=== PATIENT | female | born 1980 | race Caucasian/White ===

== ENCOUNTER 2016-04-25 12:58 | Outpatient (CLI) ==
[2015-09-03 12:01] VITALS: BMI 50.1
[2016-04-25 13:04] LABS: BASOPHILS % (AUTO) 0.4 % (0.0-3.0); EOSINOPHILS # (AUTO) 0.3 K/ul (0.0-0.7); EOSINOPHILS % (AUTO) 3.3 % (0.0-7.0); HEMATOCRIT 33.4 % (37.0-47.0); IMMATURE GRANULOCYTE % (AUTO) 0.5 % (0.0-5.0); LYMPHOCYTES # (AUTO) 1.9 K/uL (0.60-3.4); LYMPHOCYTES % (AUTO) 24.5 (10.0-50.0); MEAN CORPUSCULAR HEMOGLOBIN 21.7 pg (27.0-31.0); MEAN CORPUSCULAR HGB CONC 29.9 (31.8-35.4); MEAN CORPUSCULAR VOLUME 72.5 fl (81.0-99.0); MONOCYTES # (AUTO) 0.4 K/uL (0.4-2.0); MONOCYTES % (AUTO) 5.1 (0-10); NEUTROPHILS % (AUTO) 66.2; PLATELET COUNT 323 10^3/uL (140-440); RED BLOOD COUNT 4.61 10^6/ul (4.20-5.40); WHITE BLOOD COUNT 7.62 K/ul (4.6-10.2)
[2016-04-25 13:38] LABS: ALBUMIN 3.4 g/dL (3.4-5.0); ALBUMIN/GLOBULIN RATIO 0.85; ANION GAP 13.1; BILIRUBIN,TOTAL 0.41 mg/dL (0.00-1.20); BUN/CREATININE RATIO 12.32; CALCIUM 8.7 mg/dL (8.2-10.2); CHOL/HDL RATIO 4.9 (4.5-5.5); CREATININE 0.73 mg/dL (0.60-1.30); POTASSIUM 4.1 mmol/L (3.5-5.10); TOTAL PROTEIN 7.4 g/dL (6.4-8.2)
== END 2016-04-25 12:59 | disposition home or self-care (01) ==
LOC: LAB 12:58
PROVIDERS: ATTEND Nurse Practitioner Family
DX: I10 Essential (primary) hypertension (principal)
CPT/HCPCS: 36415; 80053; 80061; 84439; 84443; 85025

== ENCOUNTER 2016-05-10 16:08 | Outpatient (CLI) ==
[2015-09-03 12:01] VITALS: BMI 50.1
== END 2016-05-10 16:09 | disposition home or self-care (01) ==
LOC: CAR 16:08
PROVIDERS: ATTEND Nurse Practitioner Family
DX: R53.83 Other fatigue (principal); E66.9 Obesity, unspecified

== ENCOUNTER 2017-02-04 19:33 | Emergency (ER) ==
--- NOTE | 2017-02-04 19:51 | ED.PDOC ---
General ED Provider: Dr. LUIS ELIZABETH-ER Chief Complaint: Earache Stated Complaint: my ear hurts to open my mouth--its going into my forehead and down my neck--lester been taking motrin--it helps but the pain comes back Time Seen by Physician: 19:49 Mode of Arrival: Walk-In Information Source: Patient Exam Limitations: No limitations Primary Care Provider: KATHY VAUGHAN Nursing and Triage Documentation Reviewed and Agree: Yes EENT Complaint Exam - Ear Complaint/Exam Onset/Duration: 2 days Symptoms Are: Still present Timing: Constant Initial Severity: Mild Current Severity: Mild Character: Reports: Dull pain, Aching pain Aggravating: Reports: None Alleviating: Reports: None Associated Signs and Symptoms: Reports: Pain to external ear. Denies: Ear trauma, Ear swelling, Discharge, Fever, Hearing loss, Bleeding, Sore throat, Headache, URI symptoms, Foreign body sensation, Rash, Pain to external face Ear Surgical History: None Vesicles to External Pinna: No Vesicles to Tragus: No TMJ Tenderness: Right Mastoid Tenderness: None Tragal Tenderness: None External Canal: Tenderness Differential Diagnoses: Otitis Externa, TMJ Syndrome, Other Review of Systems - Review Of Systems Constitutional: Reports: No symptoms Eyes: Reports: No symptoms Ears, Nose, Mouth, Throat: Reports: Ear pain, Mouth pain Respiratory: Reports: No symptoms Cardiac: Reports: No symptoms GI: Reports: No symptoms : Reports: No symptoms Musculoskeletal: Reports: No symptoms Skin: Reports: No symptoms Neurological: Reports: No symptoms Endocrine: Reports: No symptoms Hematologic/Lymphatic: Reports: No symptoms All Other Systems: Reviewed and Negative Past Medical History - Past Medical History Previously Healthy: No Endocrine: Reports: None Cardiovascular: Reports: None Respiratory: Reports: Asthma Hematological: Reports: None Gastrointestinal: Reports: None Genitourinary: Reports: None Neuro/Psych: Reports: Other (SPINAL STENOSIS) Musculoskeletal: Reports: None Cancer: Reports: None - Surgical History General Surgical History: Reports: None - Family History Family History: Reports: Unknown - Social History Smoking Status: Never smoker Hx Substance Use: No Alcohol Screening: None Lives: With family Physical Exam - Physical Exam Appearance: Well-appearing, No pain distress, Well-nourished Pain Distress: Mild Eyes: BRENDA, EOMI, Conjunctiva clear ENT: Ears normal, Nose normal Neck: Supple Respiratory: Airway patent, Breath sounds clear, Breath sounds equal, Respirations nonlabored Cardiovascular: RRR, Pulses normal, No rub, No murmur GI/: Soft, Nontender, No masses, Bowel sounds normal, No Organomegaly Musculoskeletal: Normal strength, ROM intact, No edema, No calf tenderness Skin: Warm, Dry, Normal color Neurological: Sensation intact, Motor intact, Reflexes intact, Cranial nerves intact, Alert, Oriented Psychiatric: Affect appropriate, Mood appropriate Critical Care Note - Critical Care Note Total Time (mins): 0 Departure - Departure Time of Disposition: 19:51 Disposition: HOME SELF-CARE Discharge Problem: Dental caries, TMJ (temporomandibular joint disorder) Instructions: Temporomandibular Disorder (ED) Condition: Good Pt referred to PMD for follow-up: Yes Additional Instructions: toradol 10mg qid prn pain #16--flexeril 5mg tid prn #21--clindamycin 150mg tid x 7 days #21--f/u dentist Allergies/Adverse Reactions: Allergies aspirin Adverse Reaction (Verified 09/03/15 12:35) Iodinated Contrast- Oral and IV Dye Adverse Reaction (Verified 09/03/15 12:35) Penicillins Adverse Reaction (Verified 09/03/15 12:35) shellfish derived Adverse Reaction (Verified 09/03/15 12:35) tramadol HCl [From [facility]] Adverse Reaction (Verified 09/03/15 12:35) mice Allergy (Severe, Uncoded 01/26/16 14:34) throat swelling Patient to get medical alert necklace Home Medications: Ambulatory Orders Hydrocodone Bit/Acetaminophen [[place] 7.5-325] 1 tab PO TID 07/21/13 Ipratropium/Albuterol Sulfate [Combivent Respimat Inhal [place]] 1 puff INH DAILY 07/21/13 Flexeril 10 mg PO TID PRN 12/10/14 Cetirizine HCl/Pseudoephedrine [Zyrtec-D Tablet] 1 each PO DAILY PRN #30 tab.er.12h 09/03/15 Gabapentin 300 mg PO TID 01/26/16 Transfer Form Completed: No Disposition Discussed With: Patient
[2017-02-04 20:00] VITALS: TEMP 97.3; BMI 52.2
[2017-02-04 20:37] VITALS: BP 156/111
== END 2017-02-04 20:17 | disposition home or self-care (01) ==
LOC: ED 19:33
DX: K02.7 Dental root caries (principal); M26.609 Unspecified temporomandibular joint disorder, unspecified side
CPT/HCPCS: 99282

== ENCOUNTER 2017-07-04 16:16 | Emergency (ER) ==
[2017-07-04 16:25] VITALS: TEMP 97.2; BMI 56.6
--- NOTE | 2017-07-04 16:40 | ED.PDOC ---
General ED Provider: Dr. LUIS CAAL MD Chief Complaint: Earache Stated Complaint: earache and swollen Time Seen by Physician: 16:25 Mode of Arrival: Walk-In Information Source: Patient Exam Limitations: No limitations [facility] and Triage Documentation Reviewed and Agree: Yes Reviewed sepsis parameters & appropriate labs ordered?: Yes System Inflammatory Response Syndrome: Not Applicable Sepsis Protocol: For patient's 13 years and over: Temp is 96.8 and below OR 101 and greater Pulse >90 BPM Resp >20/minute Acutely Altered Mental Status Are patient's symptoms suggestive of a new infection, such as: -Pneumonia -Skin, Soft Tissue -Endocarditis -UTI -Bone, Joint Infection -Implantable Device -Acute Abdominal Infection -Wound Infection -Meningitis -Blood Stream Catheter Infection -Unknown Review of Systems - Review Of Systems Constitutional: Reports: No symptoms Eyes: Reports: No symptoms Ears, Nose, Mouth, Throat: Reports: No symptoms, Ear pain (R post auricular node tenderness) Respiratory: Reports: No symptoms Cardiac: Reports: No symptoms GI: Reports: No symptoms : Reports: No symptoms Musculoskeletal: Reports: No symptoms Skin: Reports: No symptoms Neurological: Reports: No symptoms Endocrine: Reports: No symptoms Hematologic/Lymphatic: Reports: No symptoms All Other Systems: Reviewed and Negative Past Medical History - Past Medical History Previously Healthy: No Endocrine: Reports: None Cardiovascular: Reports: None Respiratory: Reports: Asthma Hematological: Reports: None Gastrointestinal: Reports: None Genitourinary: Reports: None Neuro/Psych: Reports: Other (SPINAL STENOSIS) Musculoskeletal: Reports: None Cancer: Reports: None Last Menstrual Period: on - Surgical History General Surgical History: Reports: None - Family History Family History: Reports: Unknown - Social History Smoking Status: Never smoker Hx Substance Use: No Alcohol Screening: None - Immunizations Tetanus Shot up to Date: Yes Physical Exam - Physical Exam Appearance: Well-appearing, No pain distress, Well-nourished, Obese Ill-appearing: None Pain Distress: None Eyes: BRENDA, EOMI, Conjunctiva clear ENT: Erythema (R ear red) Neck: Supple Respiratory: Airway patent, Breath sounds clear, Breath sounds equal, Respirations nonlabored, Wheezes (H/O asthma) Cardiovascular: RRR, Pulses normal, No rub, No murmur GI/: Soft, Nontender, No masses, Bowel sounds normal, No Organomegaly Musculoskeletal: Normal strength, ROM intact, No edema, No calf tenderness Skin: Warm, Dry, Normal color Neurological: Sensation intact, Motor intact, Reflexes intact, Cranial nerves intact, Alert, Oriented Psychiatric: Affect appropriate, Mood appropriate Critical Care Note - Critical Care Note Total Time (mins): 0 Course - Course Vital Signs: Temp Pulse Resp BP Pulse Ox 07/04/17 16:17 97.2 F L 92 H 22 195/135 H 98 Departure - Departure Time of Disposition: 16:55 Disposition: HOME SELF-CARE Discharge Problem: Asthma Qualifiers: Asthma severity: mild Condition: Good Pt referred to PMD for follow-up: Yes IPMP verified?: No Allergies/Adverse Reactions: Allergies aspirin Adverse Reaction (Verified 07/04/17 16:26) Iodinated Contrast- Oral and IV Dye Adverse Reaction (Verified 07/04/17 16:26) Penicillins Adverse Reaction (Verified 07/04/17 16:26) shellfish derived Adverse Reaction (Verified 07/04/17 16:26) tramadol HCl [From [facility]] Adverse Reaction (Verified 07/04/17 16:26) mice Allergy (Severe, Uncoded 02/04/17 19:52) throat swelling Patient to get medical alert necklace Home Medications: Ambulatory Orders Flexeril 10 mg PO TID PRN 12/10/14 Gabapentin 300 mg PO TID 01/26/16 Lisinopril 10 mg PO DAILY 02/04/17 Hydrocodone Bit/Acetaminophen [[place] 7.5-325] 1 tab PO Q8HR 07/04/17
[2017-07-04 17:00] VITALS: BP 170/107
== END 2017-07-04 17:02 | disposition home or self-care (01) ==
LOC: ED 16:16
DX: J45.909 Unspecified asthma, uncomplicated (principal); H92.01 Otalgia, right ear
CPT/HCPCS: 99282

== ENCOUNTER 2017-07-29 11:15 | Emergency (ER) | payer OTHER ==
[2017-07-29 11:16] VITALS: BMI 56.6
[2017-07-29 11:23] VITALS: TEMP 97.7
[2017-07-29] MEDS ORDERED: SOLU-MEDROL 125 MG IM STA (11:27)
[2017-07-29] MEDS ORDERED: DUONEB NEB STA (11:27)
[2017-07-29] MEDS ORDERED: XOPENEX 1.25 MG NEB STA (11:27)
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
[2017-07-29 12:36] VITALS: BP 164/120
--- NOTE | 2017-07-29 13:13 | DI ---
EXAM: Two views of the chest. History: Cough and wheezing Comparison: Chest radiograph 07/08/2008 Findings: Heart size is normal. No focal consolidation. No appreciable pleural fluid and no pneumo thorax. No acute osseous abnormalities. Impression: No acute cardiopulmonary process.
== END 2017-07-29 12:37 | disposition home or self-care (01) ==
LOC: ED 11:15
DX: R06.02 Shortness of breath (principal); J70.5 Respiratory conditions due to smoke inhalation; J45.909 Unspecified asthma, uncomplicated
CPT/HCPCS: 82803; 88740; 94640; 96372; 99283

== ENCOUNTER 2017-10-31 17:11 | Outpatient (CLI) | END 2017-10-31 17:12 | disposition home or self-care (01) | LOC: FCC-LAB 17:11 | PROVIDERS: ATTEND Nurse Practitioner Family | DX: I10 Essential (primary) hypertension (principal) | CPT/HCPCS: 36415; 80053; 80061; 84443; 85025 ==

== ENCOUNTER 2017-11-01 18:54 | Outpatient (CLI) | END 2017-11-01 18:55 | disposition home or self-care (01) | LOC: LAB 18:54 | PROVIDERS: ATTEND Nurse Practitioner Family | DX: D64.9 Anemia, unspecified (principal) | CPT/HCPCS: 36415; 82607; 82728; 82746; 83540; 83550; 84466; 85045 ==

== ENCOUNTER 2017-12-28 17:25 | Emergency (ER) ==
[2017-12-28 17:28] VITALS: BP 179/101; TEMP 97.7; BMI 55.6
--- NOTE | 2017-12-28 18:03 | ED.PDOC ---
General ED Provider: Dr. LIZZIE PUENTE Chief Complaint: Rash Stated Complaint: rash right and left forearm Time Seen by Physician: 17:30 (see photos seen with [facility]) Mode of Arrival: Walk-In Information Source: Patient Exam Limitations: No limitations Primary Care Provider: KATHY VAUGHAN Nursing and Triage Documentation Reviewed and Agree: Yes Does patient meet sepsis criteria?: No System Inflammatory Response Syndrome: Not Applicable Sepsis Protocol: For patient's 13 years and over: Temp is 96.8 and below OR 101 and greater Pulse >90 BPM Resp >20/minute Acutely Altered Mental Status Are patient's symptoms suggestive of a new infection, such as: -Pneumonia -Skin, Soft Tissue -Endocarditis -UTI -Bone, Joint Infection -Implantable Device -Acute Abdominal Infection -Wound Infection -Meningitis -Blood Stream Catheter Infection -Unknown Skin Complaint Exam - Skin Rash/Itching Complaint/Exam Onset/Duration: 1DAY Symptoms Are: Still present Initial Severity: Mild Current Severity: Mild Potential Exposures: Reports: Unknown Aggravating: Reports: None Alleviating: Reports: None Associated Signs and Symptoms: Denies: Difficulty breathing, Fever, Chills Skin Findings: Present: Maculae, Vesicles Differential Diagnoses: Allergic Reaction, Poison [place] Review of Systems - Review Of Systems Constitutional: Reports: No symptoms Eyes: Reports: No symptoms Ears, Nose, Mouth, Throat: Reports: No symptoms Respiratory: Reports: No symptoms Cardiac: Reports: No symptoms GI: Reports: No symptoms : Reports: No symptoms Musculoskeletal: Reports: No symptoms Skin: Reports: Rash (PURTIC) Neurological: Reports: No symptoms Endocrine: Reports: No symptoms Hematologic/Lymphatic: Reports: No symptoms All Other Systems: Reviewed and Negative Past Medical History - Past Medical History Previously Healthy: No Endocrine: Reports: None Cardiovascular: Reports: None Respiratory: Reports: Asthma Hematological: Reports: None Gastrointestinal: Reports: None Genitourinary: Reports: None Neuro/Psych: Reports: Other (SPINAL STENOSIS) Musculoskeletal: Reports: None Cancer: Reports: None Last Menstrual Period: NOW - Surgical History General Surgical History: Reports: None - Family History Family History: Reports: Unknown - Social History Smoking Status: Never smoker Hx Substance Use: No Alcohol Screening: None Physical Exam - Physical Exam Appearance: Well-appearing, No pain distress, Well-nourished Eyes: BRENDA, EOMI, Conjunctiva clear ENT: Ears normal, Nose normal, Oropharynx normal Respiratory: Airway patent, Breath sounds clear, Breath sounds equal, Respirations nonlabored Cardiovascular: RRR, Pulses normal, No rub, No murmur GI/: Soft, Nontender, No masses, Bowel sounds normal, No Organomegaly Musculoskeletal: Normal strength, ROM intact, No edema, No calf tenderness Skin: Warm, Dry (RASH RIGHT AND LEFT FORE ARM SEE PHOTOS) Neurological: Sensation intact, Motor intact, Reflexes intact, Cranial nerves intact, Alert, Oriented Psychiatric: Affect appropriate, Mood appropriate Critical Care Note - Critical Care Note Total Time (mins): 0 Course - Course Vital Signs: Temp Pulse Resp BP Pulse Ox 12/28/17 17:25 97.7 F 93 H 20 179/101 H 97 Departure - Departure Time of Disposition: 18:02 Disposition: HOME SELF-CARE Discharge Problem: Pruritic rash Instructions: Acute Rash (ED), Poison [place] (ED) Condition: Good Pt referred to PMD for follow-up: Yes IPMP verified?: No Additional Instructions: Please call your Family Physician as soon as possible to schedule a follow-up appointment. Allergies/Adverse Reactions: Allergies aspirin Adverse Reaction (Verified 12/28/17 17:29) Iodinated Contrast- Oral and IV Dye Adverse Reaction (Verified 12/28/17 17:29) Penicillins Adverse Reaction (Verified 12/28/17 17:29) shellfish derived Adverse Reaction (Verified 12/28/17 17:29) tramadol HCl [From [facility]] Adverse Reaction (Verified 12/28/17 17:29) mice Allergy (Severe, Uncoded 02/04/17 19:52) throat swelling Patient to get medical alert necklace Home Medications: Ambulatory Orders Flexeril 10 mg PO TID PRN 12/10/14 Gabapentin 300 mg PO TID 10/31/17 Hydrocodone/Acetaminophen [Hydrocodone-Acetamin 7.5-300] 1 each PO TID 10/31/17 Disposition Discussed With: Patient, Family
== END 2017-12-28 18:16 | disposition home or self-care (01) ==
LOC: ED 17:25
DX: R21 Rash and other nonspecific skin eruption (principal); L29.9 Pruritus, unspecified
CPT/HCPCS: 99282

== ENCOUNTER 2018-07-12 19:27 | Outpatient (CLI) | END 2018-07-12 19:56 | disposition short-term general hospital (02) | LOC: AMBL 19:27 | PROVIDERS: ATTEND Family Medicine | DX: R11.2 Nausea with vomiting, unspecified (principal); R10.32 Left lower quadrant pain; R19.7 Diarrhea, unspecified; R00.0 Tachycardia, unspecified ==

== ENCOUNTER 2018-07-17 01:45 | Emergency (ER) ==
[2018-07-17 01:56] VITALS: TEMP 97.6; BMI 52.1
[2018-07-17] MEDS ORDERED: BENADRYL PO STA (02:18)
[2018-07-17] MEDS ORDERED: PREDNISONE PO STA (02:19)
[2018-07-17] MEDS ORDERED: CLARITIN PO STA (02:20)
--- NOTE | 2018-07-17 02:22 | ED.PDOC ---
General ED Provider: Dr. HALEIGH JORDAN Chief Complaint: Bite Stated Complaint: thinks she got bit by something not sure what on the left dital forearm. Developed welps and has been itchy. States has high blood pressure and is on medications. Time Seen by Physician: 02:20 Mode of Arrival: Walk-In Information Source: Patient Primary Care Provider: KATHY VAUGHAN Seen Within Last 72 Hours for Same Complaint By: ED Nursing and Triage Documentation Reviewed and Agree: Yes Does patient meet sepsis criteria?: No System Inflammatory Response Syndrome: Not Applicable Sepsis Protocol: For patient's 13 years and over: Temp is 96.8 and below OR 101 and greater Pulse >90 BPM Resp >20/minute Acutely Altered Mental Status Are patient's symptoms suggestive of a new infection, such as: -Pneumonia -Skin, Soft Tissue -Endocarditis -UTI -Bone, Joint Infection -Implantable Device -Acute Abdominal Infection -Wound Infection -Meningitis -Blood Stream Catheter Infection -Unknown Skin Complaint Exam - Skin Rash/Itching Complaint/Exam Onset/Duration: 1 hour ago Symptoms Are: Still present Initial Severity: Moderate Current Severity: Moderate Location: left distal forearm Potential Exposures: Reports: Insect bite Prior Treatment: calamine lotion Aggravating: Reports: None Alleviating: Reports: None Associated Signs and Symptoms: Denies: Difficulty breathing, Fever, Chills Skin Findings: Present: Urticaria Body Picture: 1 - urticaria Differential Diagnoses: Allergic Reaction, Urticaria Review of Systems - Review Of Systems Constitutional: Reports: No symptoms Eyes: Reports: No symptoms Ears, Nose, Mouth, Throat: Reports: No symptoms Respiratory: Reports: No symptoms Cardiac: Reports: No symptoms GI: Reports: No symptoms : Reports: No symptoms Musculoskeletal: Reports: No symptoms Skin: Reports: Rash Neurological: Reports: Anxiety Endocrine: Reports: No symptoms Hematologic/Lymphatic: Reports: No symptoms All Other Systems: Reviewed and Negative Past Medical History - Past Medical History Previously Healthy: No Endocrine: Reports: None Cardiovascular: Reports: Hypertension Respiratory: Reports: Asthma Hematological: Reports: Anemia Gastrointestinal: Reports: None Genitourinary: Reports: Kidney stones Neuro/Psych: Reports: Other (SPINAL STENOSIS) Musculoskeletal: Reports: Back Pain (spinal stenosis ) Cancer: Reports: None Last Menstrual Period: PRESENTLY - Surgical History General Surgical History: Reports: None - Family History Family History: Reports: Unknown - Social History Smoking Status: Never smoker Hx Substance Use: No Alcohol Screening: None - Immunizations Tetanus Shot up to Date: Yes Physical Exam - Physical Exam Appearance: Obese Ill-appearing: Mild Neck: Supple Respiratory: Airway patent, Breath sounds clear, Breath sounds equal, Respirations nonlabored Cardiovascular: RRR, Pulses normal, No rub, No murmur Skin: Warm, Dry Neurological: Alert, Oriented Psychiatric: Anxious Critical Care Note - Critical Care Note Total Time (mins): 0 Course - Course Orders, Labs, Meds: Orders Category Date Time Status Diphenhydramine HCl [Benadryl] MEDS 07/17/18 02:18 Discontinued 50 mg PO ONCE STA Loratadine [Claritin] MEDS 07/17/18 02:20 Discontinued 10 mg PO ONCE STA Prednisone MEDS 07/17/18 02:19 Discontinued 20 mg PO ONCE STA Medications Discontinued Medications Generic Name Dose Route Start Last Admin Trade Name Freq PRN Reason Stop Dose Admin Diphenhydramine HCl 50 mg 07/17/18 02:18 07/17/18 02:25 Benadryl PO 07/17/18 02:19 50 mg ONCE STA Administration Loratadine 10 mg 07/17/18 02:20 07/17/18 02:26 Claritin PO 07/17/18 02:21 10 mg ONCE STA Administration Prednisone 20 mg 07/17/18 02:19 07/17/18 02:26 Prednisone PO 07/17/18 02:20 20 mg ONCE STA Administration Vital Signs: Temp Pulse Resp BP Pulse Ox 07/17/18 01:46 97.6 F 97 H 20 181/115 H 99 Departure - Departure Time of Disposition: 02:48 Disposition: HOME SELF-CARE Discharge Problem: Urticaria, Uncontrolled hypertension Instructions: Urticaria (ED), Chronic Hypertension (ED) Condition: Fair Pt referred to PMD for follow-up: Yes IPMP verified?: No Additional Instructions: continue home Benadryl as needed for itching Take claritin and zantac also as needed do not scratch the area as it gets more irritated. Allergies/Adverse Reactions: Allergies aspirin Adverse Reaction (Verified 07/17/18 01:55) Unknown Iodinated Contrast- Oral and IV Dye Adverse Reaction (Verified 07/17/18 01:55) Swelling Penicillins Adverse Reaction (Verified 07/17/18 01:55) Rash shellfish derived Adverse Reaction (Verified 07/17/18 01:55) Rash tramadol HCl [From [facility]] Adverse Reaction (Verified 07/17/18 01:55) Vomiting mice Allergy (Severe, Uncoded 02/04/17 19:52) throat swelling Patient to get medical alert necklace Home Medications: Ambulatory Orders Flexeril 10 mg PO TID PRN 12/10/14 Gabapentin 300 mg PO TID PRN 10/31/17 Hydrocodone/Acetaminophen [Hydrocodone-Acetamin 7.5-300] 1 each PO TID 10/31/17 Disposition Discussed With: Patient, Family
[2018-07-17 04:39] VITALS: BP 180/99
== END 2018-07-17 04:35 | disposition home or self-care (01) ==
LOC: ED 01:45
DX: L50.9 Urticaria, unspecified (principal); I10 Essential (primary) hypertension
CPT/HCPCS: 99283